=== PATIENT | female | born 1965 | race Caucasian/White ===

== ENCOUNTER 2020-08-14 11:07 | Emergency (ER) | payer BC, SELFPAY ==
[2020-08-14 11:12] VITALS: BP 156/94; PULSE 89; RESP 16; TEMP 36.4; O2SAT 95; BMI 38.5
[2020-08-14 11:17] VITALS: BP 164/106; PULSE 84; RESP 18; O2SAT 96
--- NOTE | 2020-08-14 11:26 | ED_ITS ---
HPI - General Adult General: Chief complaint: General Medical Stated complaint: HIGH BLOOD SUGAR Time Seen by Provider: 08/14/20 11:19 History of Present Illness: HPI narrative: 54-year-old female presents with concerns for high blood sugar. Patient reports her sister was recently diagnosed with diabetes. Her went out but a glucometer and start secondary by his blood sugar. Reports that multiple times it registered with her in the upper 3 lower 400s. So she presented to the ER to be further evaluated. She has complaints of kind of a foggy head, some frequent urination but no other systemic complaint Associated symptoms: Deny chest pain, dyspnea, headache(s), malaise, nausea, rash, palpitations or vomiting Review of Systems Const: Denies: fever(s), chills or malaise Eyes: Denies: change in vision ENMT: Denies: throat pain Card: Denies: chest pain or palpitations Resp: Denies: dyspnea, productive cough or non-productive cough GI: Denies: abdominal pain, nausea or vomiting : Reports: urinary frequency; Denies: flank pain or dysuria Musc: Denies: neck pain or back pain Skin/Breast: Denies: rash Neuro: Denies: headache(s), weakness in extremities or sensory changes Psych: Denies: anxiety Endo: Reports: polyuria Physical Exam Const: COMMON NORMALS: no acute distress, patient oriented x3, no limitations and alert Neck/C-Spine: COMMON NORMALS: full ROM Resp: COMMON NORMALS: normal respiratory effort and clear to auscultation bilaterally EFFORT & INSPECTION: Yes able to speak in complete sentences AUSCULTATION: clear to auscultation bilaterally Cardio: COMMON NORMALS: regular rate and regular rhythm RATE: regular rate RHYTHM: regular rhythm GI: COMMON NORMALS: Soft to palpation and non-tender INSPECTION: Yes central obesity PALPATION: Yes Soft to palpation : COMMON NORMALS: Yes no CVA tenderness BLADDER/KIDNEY EXAM: Yes no CVA tenderness Back/Pelvis: COMMON NORMALS: no CVA tenderness Extremity: COMMON NORMALS: normal to inspection and full ROM Neuro: COMMON NORMALS: patient oriented x3 and no focal motor deficits SENSORIUM/ORIENTATION: Yes alert GAIT: Yes Normal gait present Psych: COMMON NORMALS: mental status grossly normal, normal affect and speech normal APPEARANCE: Yes well kempt ATTITUDE: Yes calm ACTIVITY/MOTOR BEHAVIOR: Yes appropriate eye contact SPEECH: Yes normal speech Course Vital Signs: Vital signs: Vital Signs Temperature 97.5 F L 08/14/20 11:12 Pulse Rate 84 08/14/20 11:17 Respiratory Rate 18 08/14/20 11:17 Blood Pressure 164/106 08/14/20 11:17 Pulse Oximetry 96 08/14/20 11:17 MDM - General Adult MDM Narrative: Medical decision making narrative: Patient with type 2 diabetes. I will start her on Metformin. Consult to case management to help arrange diabetes management and outpatient follow-up for further management and possible initiation of insulin therapy Lab Data: Attestation: I reviewed the patient's lab results. Labs: Lab Results 08/14/20 08/14/20 08/14/20 Range/Units 11:35 11:37 11:47 Sodium 129 L (136-145) mmol/L Potassium 4.3 (3.5-5.1) mmol/L Chloride 94 L (98-107) mmol/L Carbon Dioxide 22 (22-29) mmol/L Anion Gap 17.3 (5-19) BUN 13 (6-20) mg/dL Creatinine 0.7 (0.5-0.9) mg/dL GFR Calculation 87.2 L (90-130) mL/min Glucose 426 H (65-115) mg/dL POC Glucose 457 H (70-110) mg/dL Estimat Average Gl ucose Hemoglobin A1c (4.0-6.0) % Calculated Osmolal ity 286 (285-295) mOsm/k g Calcium 8.8 (8.5-10.5) mg/dL Total Bilirubin 0.5 (0.15-1.2) mg/dL AST 23 (0-32) U/L ALT 31 (0-33) U/L Alkaline Phosphata se 97 (35-105) IU/L Total Protein 7.1 (6.6-8.7) g/dL Albumin 4.0 (3.5-5.2) g/dL Globulin 3.1 (1.3-4.6) g/dL Urine Color Straw (Yellow) Urine Appearance Clear (CLEAR) Urine pH 5 (5-7) Ur Specific Gravit y 1.020 (1.005-1.030) Urine Protein Neg (Negative) Urine Glucose (UA) 4+ H (Normal) Urine Ketones 2+ H (Negative) Urine Blood Neg (Negative) Urine Nitrate Negative (Negative) Urine Bilirubin Neg (Negative) Urine Urobilinogen Norm (Negative) mg/dL Ur Leukocyte Elma ase Negative (Negative) 08/14/20 Range/Units 11:47 Sodium (136-145) mmol/L Potassium (3.5-5.1) mmol/L Chloride (98-107) mmol/L Carbon Dioxide (22-29) mmol/L Anion Gap (5-19) BUN (6-20) mg/dL Creatinine (0.5-0.9) mg/dL GFR Calculation (90-130) mL/min Glucose (65-115) mg/dL POC Glucose (70-110) mg/dL Estimat Average Gl ucose 321 Hemoglobin A1c 12.8 H (4.0-6.0) % Calculated Osmolal ity (285-295) mOsm/k g Calcium (8.5-10.5) mg/dL Total Bilirubin (0.15-1.2) mg/dL AST (0-32) U/L ALT (0-33) U/L Alkaline Phosphata se (35-105) IU/L Total Protein (6.6-8.7) g/dL Albumin (3.5-5.2) g/dL Globulin (1.3-4.6) g/dL Urine Color (Yellow) Urine Appearance (CLEAR) Urine pH (5-7) Ur Specific Gravit y (1.005-1.030) Urine Protein (Negative) Urine Glucose (UA) (Normal) Urine Ketones (Negative) Urine Blood (Negative) Urine Nitrate (Negative) Urine Bilirubin (Negative) Urine Urobilinogen (Negative) mg/dL Ur Leukocyte Elma ase (Negative) Discharge Plan Discharge Patient Disposition: Home Clinical Impression: Diabetes mellitus Qualifiers: Diabetes mellitus type: type 2 Diabetes mellitus marine oil terminal superintendent insulin use: without senior living use Diabetes mellitus complication status: without complication Qualified Code(s): E11.9 - Type 2 diabetes mellitus without complications Hyperglycemia due to type 2 diabetes mellitus Qualifiers: Diabetes mellitus marine oil terminal superintendent insulin use: without marine oil terminal superintendent use Qualified Code(s): E11.65 - Type 2 diabetes mellitus with hyperglycemia Condition: Stable Prescriptions: New metformin 500 mg tablet 500 mg PO BID Qty: 60 RF: 0 No Action fluoxetine 20 mg Tablet 20 mg PO DAILY@08 RF: 0 Discharge Orders: Discharge ED (Routine); Ordered 08/14/20 Ordered By: Ubaldo Norwood Discharge Diet: Diabetic Discharge Activity: Resume usual activity Patient Instructions: Diabetes and Diet, Diabetes Mellitus Type 2 in Adults (ED), Opioid Safety Activity Restrictions/Additional Instructions: Please start Metformin twice daily. Please follow-up with your primary care provider for further outpatient management and diabetic education Coding Level of Care Code ED Medical Technician for [place] Fwd Exam Comprehensive
[2020-08-14 11:41] LABS: Add Urine Microscopic? NO; Charge for UA Resulting for Rev
[2020-08-14 11:42] LABS: Glucose Point of Care 457 mg/dL (70-110)
[2020-08-14 11:51] LABS: Bilirubin Urine Neg (Negative); Blood Urine Neg (Negative); Glucose Urine UA 4+ (Normal); Ketones Urine 2+ (Negative); Leukocyte Esterase Urine Negative (Negative); Nitrate Urine Negative (Negative); Protein Urine Neg (Negative); Urine Appearance Clear (CLEAR); Urine Color Straw (Yellow); Urobilinogen Urine Norm (Negative); pH Urine 5 (5-7)
[2020-08-14 12:06] LABS: Estmated Average Glucose 321; Hemoglobin A1C 12.8 % (4.0-6.0)
[2020-08-14 12:18] LABS: Alanine Aminotransferase 31 U/L (0-33); Alkaline Phosphatase 97 IU/L (35-105); Aspartate Amino Transferase 23 U/L (0-32); Blood Urea Nitrogen 13 mg/dL (6-20); Calcium 8.8 mg/dL (8.5-10.5); Carbon Dioxide 22 mmol/L (22-29); Chloride 94 mmol/L (98-107); Globulin 3.1 g/dL (1.3-4.6); Glomerular Filtration Rate 87.2 mL/min (90-130); Glucose 426 mg/dL (65-115); Osmolality Calculated 286 mOsm/kg (285-295); Sodium 129 mmol/L (136-145); Total Bilirubin 0.5 mg/dL (0.15-1.2); Total Protein 7.1 g/dL (6.6-8.7)
[2020-08-14 12:19] LABS: Anion Gap 17.3 (5-19); Potassium 4.3 mmol/L (3.5-5.1)
--- NOTE | 2020-08-14 13:40 | PC.NURSE ---
Spoke with Dr. Norwood. Additional bedside blood glucose test not needed at this time per MD.
--- NOTE | 2020-08-17 10:47 | DCPLANNER ---
athletic equipment manager had message to speak with patient about getting established with a primary care physician. athletic equipment manager spoke with patient and she stated that she would like help in getting established with a primary care physician, she also stated that she would like to have a female physician. athletic equipment manager called [facility], spoke with Linda, gave clinic patients information. A follow up appointment was scheduled for Monday, August 31, 2020 at 10:[address] Zee. athletic equipment manager called patient and gave patient the appointment information.
--- NOTE | 2020-09-21 11:43 | DCPLANNER ---
Patient had a follow up appointment scheduled for 08.31.[address] Zee to establish care at [facility] - patient did attend appointment.
== END 2020-08-14 13:41 | disposition home or self-care (01) ==
PROVIDERS: Emergency Provider Student in an Organized Health Care Education/Training Program
DX: E11.65 Type 2 diabetes mellitus with hyperglycemia (principal)
CPT/HCPCS: 36416; 80053; 81003; 82962; 83036; 99282

== ENCOUNTER → 2020-09-04 08:26 | Outpatient (BNVA) | payer BC, SELFPAY | PROVIDERS: PCP Family Medicine; Visit Provider Family Medicine | DX: E11.65 Type 2 diabetes mellitus with hyperglycemia (principal); F41.8 Other specified anxiety disorders; I10 Essential (primary) hypertension; Z68.38 Body mass index [BMI] 38.0-38.9, adult | CPT/HCPCS: 80053; 80061; 81015; 82043; 85025 ==

== ENCOUNTER → 2020-11-02 08:46 | Outpatient (BNVA) | payer BC, SELFPAY | PROVIDERS: PCP Family Medicine; Visit Provider Family Medicine | DX: E11.65 Type 2 diabetes mellitus with hyperglycemia (principal); G47.00 Insomnia, unspecified; I10 Essential (primary) hypertension; F41.8 Other specified anxiety disorders; Z79.899 Other long term (current) drug therapy | CPT/HCPCS: 83036 ==

== ENCOUNTER → 2022-03-04 10:15 | Outpatient (BNVA) | payer BC, SELFPAY | PROVIDERS: PCP Family Medicine; Visit Provider Family Medicine | DX: E11.65 Type 2 diabetes mellitus with hyperglycemia (principal); I10 Essential (primary) hypertension; J02.9 Acute pharyngitis, unspecified | CPT/HCPCS: 80053; 80061; 83036; 85025; 87880 ==

== ENCOUNTER → 2022-05-19 17:51 | Outpatient (BNVA) | payer BC, SELFPAY | PROVIDERS: PCP Family Medicine; Visit Provider Nurse Practitioner Family | DX: R05.9 Cough, unspecified (principal) | CPT/HCPCS: 71046 ==

== ENCOUNTER 2023-01-30 08:19 | Outpatient (CLI) | payer BC, SELFPAY ==
--- NOTE | 2023-01-30 08:23 | MM_ITS ---
WS: [id number] SCREENING DIGITAL BREAST TOMOSYNTHESIS MAMMOGRAM WITH CAD HISTORY: Z00.00 - Encounter for general adult medical examination ... COMPARISON: Ultrasound 12/17/2020 and mammogram 12/17/2020 Bilateral CC and MLO with tomosynthesis and synthetic mammography submitted. Computer aided detection analyzed. Breast composition: There are scattered areas of fibroglandular density. Asymmetry in the upper outer quadrant LEFT breast at middle depth. There is a mass within the central asymmetry measuring 1.2 x 1 .2 cm. This mass has been previously described but appears larger on today's study. There are also ad ditional calcifications within each breast. IMPRESSION: MM/[place] [id number] BI-RADS: 0-Incomplete: Need additional imaging evaluation FOLLOW UP: Need Additional Imaging LEFT breast: Spot compression views (CC and MLO). True ML. Ultrasound to follow if abnormality persists.
== END 2023-01-30 08:20 | disposition home or self-care (01) ==
PROVIDERS: PCP Family Medicine; Visit Provider Family Medicine
DX: Z12.31 Encounter for screening mammogram for malignant neoplasm of breast (principal)
CPT/HCPCS: 77063; 77067

== ENCOUNTER → 2023-02-05 18:40 | Outpatient (BNVA) | payer BC, SELFPAY | PROVIDERS: PCP Family Medicine; Visit Provider Emergency Medicine | DX: R11.10 Vomiting, unspecified (principal); R51.9 Headache, unspecified; A08.4 Viral intestinal infection, unspecified | CPT/HCPCS: 87400; 87426 ==

== ENCOUNTER → 2023-03-26 08:32 | Outpatient (BNVA) | payer BC, SELFPAY | PROVIDERS: PCP Family Medicine; Visit Provider Family Medicine | DX: E11.65 Type 2 diabetes mellitus with hyperglycemia (principal); I10 Essential (primary) hypertension | CPT/HCPCS: 80053; 80061; 82043; 83036; 85025 ==

== ENCOUNTER 2023-06-04 12:44 | Outpatient (CLI) | payer BC, SELFPAY ==
--- NOTE | 2023-06-04 12:56 | MM_ITS ---
WS: [id number] ADDITIONAL VIEWS LEFT MAMMOGRAM with tomosynthesis. LEFT BREAST ULTRASOUND HISTORY: abnormal mammogram COMPARISON: 01/30/2023 and 12/17/2020 LEFT MAMMOGRAM: Spot compression views and true ML with tomosynthesis and sympathetic mammography. Well-circumscribed mass with calcifications in the lateral LEFT breast near 2-3 o'clock measures 1.3 cm. There are a few adjacent calcifications and mild asymmetric breast tissue. LEFT BREAST ULTRASOUND 2-D and color Doppler imaging submitted. Ultrasound at 2:00 LEFT breast, 4 cm from the nipple demonstrates a complex cystic mass with through transmission measuring 1.5 x 1.7 x 1.1 cm. There is increased echogenicity and mild wall thickening a nd a few septations. There is no enhancement. IMPRESSION: MM/[place] [id number] BI-RADS: 4-Suspicious Finding-Biopsy Should Be Considered FOLLOW UP: Biopsy Recommended 1. Complex cystic mass in the LEFT breast at 2:00 is most likely a complex cys t. As this is not a simple cyst recommend biopsy of the thick wall and/or aspir ation.
== END 2023-06-04 12:45 | disposition home or self-care (01) ==
LOC: RAD 12:45
PROVIDERS: PCP Family Medicine; Visit Provider Family Medicine
DX: R92.8 Other abnormal and inconclusive findings on diagnostic imaging of breast (principal); N63.22 Unspecified lump in the left breast, upper inner quadrant
CPT/HCPCS: 76642; 77061; 80053; 80061; 82043; 83036; 85025; G0279

== ENCOUNTER 2023-06-17 11:02 | Outpatient (CLI) | payer BC, SELFPAY ==
--- NOTE | 2023-06-17 13:15 | US_ITS ---
WS: [id number] ULTRASOUND-GUIDED LEFT BREAST BIOPSY HISTORY: Breast mass, complex cystic mass. COMPARISON: 06/04/2023, 12/17/2020 and 01/30/2023 Procedure, risks and complications are explained to the patient. Medications are reviewed. Consent is obtained. The mass in the LEFT breast is localized with ultrasound. Mass localizes to 2:00, 4 cm from the nippl e. This is a complex cystic mass. Skin is cleansed with ChloraPrep and anesthetized with 1% buffered lidocaine. Small dermatome is made. Under sterile conditions mass is biopsied with a 14-gauge Achieve needle. Multiple core biopsies are performed. Material placed in formalin and sent to pathology for review. No complications encountered. Breast tissue marker ([facility] ultrasound enhanced ribbon): Single. Patient left the radiology suite with no complications. Patient is instructed to return to [facility] or [facility] with any concerns. IMPRESSION: 1. Uncomplicated core needle biopsy LEFT breast cystic mass. US/[place] [id number] PATHOLOGY: Fragments of breast parenchyma fibrocystic changes, duct ectasia, ap ocrine metaplasia and sclerosing adenosis with cyst formation. No malignancy. RECOMMENDATION: Recommend diagnostic mammogram in 6 months with possible ultras ound. Pathology imaging is concordant.
== END 2023-06-17 11:03 | disposition home or self-care (01) ==
LOC: RAD 11:02
PROVIDERS: PCP Family Medicine; Visit Provider Family Medicine
DX: N63.21 Unspecified lump in the left breast, upper outer quadrant (principal)
CPT/HCPCS: 19083; 88305

== ENCOUNTER → 2023-08-28 07:04 | Outpatient (BNVA) | payer BC, SELFPAY | PROVIDERS: PCP Family Medicine; Visit Provider Family Medicine Adult Medicine | DX: R68.89 Other general symptoms and signs (principal); R05.9 Cough, unspecified; J02.9 Acute pharyngitis, unspecified; J06.9 Acute upper respiratory infection, unspecified | CPT/HCPCS: 87400 ==

== ENCOUNTER → 2023-12-15 10:24 | Outpatient (BNVA) | payer BC, SELFPAY | PROVIDERS: PCP Family Medicine; Visit Provider Family Medicine | DX: E11.65 Type 2 diabetes mellitus with hyperglycemia (principal) | CPT/HCPCS: 80053; 80061; 83036; 84439; 84443; 85025 ==

== ENCOUNTER → 2024-06-09 07:21 | Outpatient (BNVA) | payer BC, SELFPAY | PROVIDERS: PCP Family Medicine; Visit Provider Emergency Medicine | DX: J02.9 Acute pharyngitis, unspecified (principal) | CPT/HCPCS: 87071; 87880 ==

== ENCOUNTER → 2024-07-21 08:58 | Outpatient (BNVA) | payer BC, SELFPAY | PROVIDERS: PCP Family Medicine; Visit Provider Family Medicine | DX: Z51.81 Encounter for therapeutic drug level monitoring (principal); E11.9 Type 2 diabetes mellitus without complications; Z13.6 Encounter for screening for cardiovascular disorders | CPT/HCPCS: 80053; 80061; 83036; 85025 ==

== ENCOUNTER 2024-07-22 10:56 | Outpatient (CLI) | payer BC, SELFPAY ==
--- NOTE | 2024-07-22 11:00 | MM_ITS ---
WS: [email or web address] BILATERAL SCREENING DIGITAL TOMOSYNTHESIS MAMMOGRAM WITH CAD HISTORY: Screening mammogram COMPARISON: 06/04/2023, 01/30/2023 Bilateral CC and MLO views with tomosynthesis and synthetic mammography submitted. Computer aided detection analyzed. Breast composition: There are scattered areas of fibroglandular density. No suspicious masses, microcalcifications or architectural distortion. Post biopsy clip upper outer quadrant LEFT breast. Area of asymmetry surrounding the clip. Previously described mass is no longer evident. No suspicious grouping of calcifications. Please note patient did not return for diagnostic 6-month LEFT breast follow-up after LEFT breast biopsy. MM/MM scr BI tomosynthesis [id number] IMPRESSION: BI-RADS: 2 - Benign. FOLLOW UP: 1 Year Follow-up
== END 2024-07-22 10:57 | disposition home or self-care (01) ==
LOC: RAD 10:58
PROVIDERS: PCP Family Medicine; Visit Provider Family Medicine
DX: Z12.31 Encounter for screening mammogram for malignant neoplasm of breast (principal); R92.323 Mammographic fibroglandular density, bilateral breasts; N64.89 Other specified disorders of breast
CPT/HCPCS: 77063; 77067

== ENCOUNTER → 2025-02-10 08:57 | Outpatient (BNVA) | payer BC, SELFPAY | PROVIDERS: PCP Family Medicine; Visit Provider Family Medicine | DX: Z51.81 Encounter for therapeutic drug level monitoring (principal); R53.81 Other malaise; R53.83 Other fatigue; E11.9 Type 2 diabetes mellitus without complications; Z13.6 Encounter for screening for cardiovascular disorders | CPT/HCPCS: 80053; 80061; 83036; 84439; 84443; 85025 ==

== ENCOUNTER 2025-02-24 09:19 | Outpatient (CLI) | payer BC, SELFPAY ==
--- NOTE | 2025-02-24 09:15 | FL_ITS ---
WS: [email or web address] Exam: FL barium swallow gastro [id number] Date/Time of Exam: 02/24/2025 9:58 AM Reason For Exam: Fluoroscopy time: 2min [id number] minutes # of spot films: Oral pharyngeal phase of swallowing was normal. 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 No sign of esophageal stricture or mass. No reflux was observed. No hiatal hernia. The esophagus was not displaced. FL/FL barium swallow gastro [id number] IMPRESSION: 1. Tertiary spasm of the esophagus. 2. No indication of esophageal mass or stricture.
== END 2025-02-24 09:20 | disposition home or self-care (01) ==
LOC: RAD 09:26
PROVIDERS: PCP Family Medicine; Visit Provider Family Medicine
DX: R13.10 Dysphagia, unspecified (principal); K22.4 Dyskinesia of esophagus
CPT/HCPCS: 74220

== ENCOUNTER 2025-04-03 06:29 | Outpatient (CLI) | payer BC, SELFPAY ==
--- NOTE | 2025-04-03 06:30 | US_ITS ---
WS: [email or web address] THYROID ULTRASOUND HISTORY: enlarged thyroid COMPARISON: None available. Right lobe: 2.8 cm x 2.3 cm x 6.2 cm (w x ap x l). Volume: 19.0 cm3. Enlarged heterogeneous thyroid. No nodules are identified. Few tiny cysts are identified. Mild increased vascularity. Left lobe: 2.4 cm x 2.4 cm x 5.5 cm (w x ap x l). Volume: 15.0 cm3. Enlarged heterogeneous LEFT thyroid. There are a few tiny cysts. No discrete nodules. Mild increased vascularity. Isthmus: 0.8 cm. US/US thyroid [id number] IMPRESSION: Diffuse thyromegaly with no thyroid nodules. Differential includes multinodular goiter and thyroiditis. There is some increased vascularity within the gland w hich can be seen with thyroiditis.
--- NOTE | 2025-04-03 07:59 | XR_ITS ---
WS: [email or web address] XR cervical spine 3V* [id number] REASON FOR EXAM: Cervical neck pain FINDINGS: Straightening of the normal lordosis. Mild dextroscoliosis. Normal odontoid. No focal lesion or significant compression deformity of the cervical vertebrae. Mild narrowing of the disc spaces C4-C7. Moderate anterior and mild posterior osteophytosis C4-C7. No significant neutral listhesis. XR/XR cervical spine 3V* [id number] IMPRESSION: Degenerative spondylosis of the cervical spine as above.
== END 2025-04-03 06:30 | disposition home or self-care (01) ==
LOC: RAD 06:29
PROVIDERS: PCP Family Medicine; Visit Provider Family Medicine
DX: E04.9 Nontoxic goiter, unspecified (principal); M50.323 Other cervical disc degeneration at C6-C7 level; M25.78 Osteophyte, vertebrae; E04.0 Nontoxic diffuse goiter; E04.2 Nontoxic multinodular goiter
CPT/HCPCS: 72040; 76536